=== PATIENT | female | born 1980 | race American Indian/Alaskan Native ===

== ENCOUNTER 2018-12-20 12:20 | Emergency (ER) | payer MEDICAID ==
--- NOTE | 2018-12-20 13:22 | Emergency Department Report ---
Blank Doc - Documentation Documentation: 38-year-old female that presents with left leg pain behind knee and heart palp ation. Denies any cp or sob. This initial assessment/diagnostic orders/clinical plan/treatment(s) is/are subject to change based on patient's health status, clinical progression and re- assessment by fellow clinical providers in the ED. Further treatment and workup at subsequent clinical providers discretion. Patient/guardians urged not to elope from the ED as their condition may be serious if not clinically assessed and managed. Initial orders include: 1- Patient sent to [facility] for further evaluation and treatment 2- doppler US r/o DVT 3- EKG
[2018-12-20 13:43] LABS: Basophils # (Auto) 0.1 K/mm3 (0.0-0.1); Eosinophils # (Auto) 0.1 K/mm3 (0.0-0.4); Eosinophils % (Auto) 1.1 % (0.0-4.3); Hematocrit 40.2 % (30.3-42.9); Hemoglobin 13.1 gm/dl (10.1-14.3); Lymphocytes # (Auto) 3.6 K/mm3 (1.2-5.4); Lymphocytes % (Auto) 45.2 % (13.4-35.0); Mean Corpuscular HGB Conc 33 % (30-34); Mean Corpuscular Volume 90 fl (79-97); Monocytes # (Auto) 0.5 K/mm3 (0.0-0.8); Monocytes % (Auto) 6.6 % (0.0-7.3); Platelet Count 249 K/mm3 (140-440); Red Blood Count 4.48 M/mm3 (3.65-5.03); Red Cell Distribution Width 12.8 % (13.2-15.2)
[2018-12-20 14:11] LABS: BUN/Creatinine Ratio 17; Blood Urea Nitrogen 12 mg/dL (7-17); Calcium 9.7 mg/dL (8.4-10.2); Hemolysis Index 15
--- NOTE | 2018-12-20 15:15 | Vascular Lab Report ---
DUPLEX DOPPLER LOWER EXTREMITY VEINS, LEFT INDICATION: Left lower extremity pain for 2 days. TECHNIQUE: Duplex doppler imaging was performed through the veins of the left lower extremity using venous compression and other maneuvers. COMPARISON: No relevant prior imaging study available. FINDINGS: Left Common femoral vein: Negative. Left Superficial femoral vein: Negative. Left Popliteal vein: Negative. Left Calf veins: Negative. Additional findings: None.. IMPRESSION: No sonographic evidence for DVT in the left lower extremity. Signer Name: Luis A Tidwell Jr, MD Signed: 12/20/2018 3:10 PM Workstation Name: [id number]
[2018-12-20 17:23] VITALS: BP 133/91
--- NOTE | 2018-12-20 17:44 | Emergency Department Report ---
ED Palpitations HPI - General Chief Complaint: Arrhythmia/Palpitations Stated Complaint: PALPITATION/LT LEG PAIN SWOLLEN Time Seen by Provider: 12/20/18 13:21 Source: patient Mode of arrival: Ambulatory Limitations: No Limitations - History of Present Illness Initial Comments: Patient is a 38-year-old female who presents emergency room with complaints of palpitations that began a few days ago. She states it lasts for a couple minutes and then goes away on its own. pt states that she has experienced this in the past and it just spontaneously resolves but she's never been evaluated for it. Patient denies any chest pain, shortness of breath, pleuritic chest pain, nausea, vomiting, diarrhea, fever, leg swelling, syncope. She states that she is also an experiencing cramping/spasming feeling in her left lower leg that began 3 days ago but has not seen any swelling. She denies any history of DVT or PE. States her mother did have a DVT in her 60s. Patient states she has had her thyroid function tested before during her routine physical exam at her doctor's office this year. Pt is planning to see her primary care doctor this week. She states she has a past medical history of asthma. She denies any allergies to medications. - Related Data Home Medications Medication Instructions Recorded Confirmed Last Taken ALBUTEROL Inhaler (OR & NICU) 2 puff IH QID PRN 03/30/15 12/10/15 Unknown [ProAir HFA Inhaler] Previous Rx's Medication Instructions Recorded Last Taken Type Ibuprofen [Motrin 800 MG tab] 800 mg PO Q8H PRN #20 tablet 01/25/14 Unknown Rx Naproxen [Naprosyn] 500 mg PO BID #10 tablet 03/30/15 Unknown Rx Cyclobenzaprine HCl [Flexeril 5 MG 5 mg PO QHS PRN #7 tablet 12/20/18 Unknown Rx TAB] Allergies Allergy/AdvReac Type Severity Reaction Status Date / Time No Known Allergies Allergy Unverified 01/25/14 08:47 ED Review of Systems ROS: Stated complaint: PALPITATION/LT LEG PAIN SWOLLEN Other details as noted in HPI Comment: All other systems reviewed and negative ED Past Medical Hx - Past Medical History Previous Medical History?: Yes Hx Asthma: Yes - Surgical History Past Surgical History?: Yes Additional Surgical History: tubal ligation - Social History Smoking Status: Current Every Day Smoker Substance Use Type: Marijuana - Medications Home Medications: Home Medications Medication Instructions Recorded Confirmed Last Taken Type Ibuprofen [Motrin 800 MG tab] 800 mg PO Q8H PRN #20 tablet 01/25/14 12/10/15 Unknown Rx ALBUTEROL Inhaler (OR & NICU) 2 puff IH QID PRN 03/30/15 12/10/15 Unknown History [ProAir HFA Inhaler] Naproxen [Naprosyn] 500 mg PO BID #10 tablet 03/30/15 12/10/15 Unknown Rx Cyclobenzaprine HCl [Flexeril 5 MG 5 mg PO QHS PRN #7 tablet 12/20/18 Unknown Rx TAB] ED Physical Exam - General Limitations: No Limitations General appearance: alert, in no apparent distress - Head Head exam: Present: atraumatic, normocephalic - Eye Eye exam: Present: normal appearance - ENT ENT exam: Present: mucous membranes moist - Respiratory Respiratory exam: Present: normal lung sounds bilaterally. Absent: respiratory distress, wheezes, rales, rhonchi, stridor, chest wall tenderness, accessory muscle use, decreased breath sounds, prolonged expiratory - Cardiovascular Cardiovascular Exam: Present: regular rate, normal rhythm, normal heart sounds. Absent: systolic murmur, diastolic murmur, rubs, gallop - Extremities Exam Extremities exam: Present: other (no BLE edema, negative homans sign, mild soreness to palpation of the left lower leg, 2+ distal pulses bilaterally, sensation intact) - Neurological Exam Neurological exam: Present: alert, oriented X3 - Psychiatric Psychiatric exam: Present: normal affect, normal mood - Skin Skin exam: Present: warm, dry, intact ED Course Vital Signs 12/20/18 12/20/18 13:21 17:08 Temperature 98 F 98.2 F Pulse Rate 70 71 Respiratory 18 16 Rate Blood Pressure 163/84 133/91 O2 Sat by Pulse 100 100 Oximetry ED Medical Decision Making - Lab Data Result diagrams: 12/20/18 13:25 12/20/18 13:25 Lab Results 12/20/18 12/20/18 Range/Units 13:25 13:25 WBC 7.9 (4.5-11.0) K/mm3 RBC 4.48 (3.65-5.03) M/mm3 Hgb 13.1 (10.1-14.3) gm/dl Hct 40.2 (30.3-42.9) % MCV 90 (79-97) fl MCH 29 (28-32) pg MCHC 33 (30-34) % RDW 12.8 L (13.2-15.2) % Plt Count 249 (140-440) K/mm3 Lymph % (Auto) 45.2 H (13.4-35.0) % Pender % (Auto) 6.6 (0.0-7.3) % Eos % (Auto) 1.1 (0.0-4.3) % Baso % (Auto) 1.0 (0.0-1.8) % Lymph # 3.6 (1.2-5.4) K/mm3 Pender # 0.5 (0.0-0.8) K/mm3 Eos # 0.1 (0.0-0.4) K/mm3 Baso # 0.1 (0.0-0.1) K/mm3 Seg Neutrophils % 46.1 (40.0-70.0) % Seg Neutrophils # 3.7 (1.8-7.7) K/mm3 Sodium 140 (137-145) mmol/L Potassium 4.3 (3.6-5.0) mmol/L Chloride 102.2 (98-107) mmol/L Carbon Dioxide 25 (22-30) mmol/L Anion Gap 17 mmol/L BUN 12 (7-17) mg/dL Creatinine 0.7 (0.7-1.2) mg/dL Estimated GFR > 60 ml/min BUN/Creatinine Ratio 17 % Glucose 97 (65-100) mg/dL Calcium 9.7 (8.4-10.2) mg/dL - EKG Data EKG shows normal: sinus rhythm, axis, intervals, QRS complexes Rate: normal - EKG Data 12/20/18 17:48 non specific T wave inversion only found in V1, v2 has been present previously on EKG on 12/10/2015 - Radiology Data Radiology results: report reviewed DUPLEX DOPPLER LOWER EXTREMITY VEINS, LEFT INDICATION: Left lower extremity pain for 2 days. TECHNIQUE: Duplex doppler imaging was performed through the veins of the left lower extremity using venous compression and other maneuvers. COMPARISON: No relevant prior imaging study available. FINDINGS: Left Common femoral vein: Negative. Left Superficial femoral vein: Negative. Left Popliteal vein: Negative. Left Calf veins: Negative. Additional findings: None.. IMPRESSION: No sonographic evidence for DVT in the left lower extremity. Signer Name: Luis A Torre Jr, MD Signed: 12/20/2018 3:10 PM Workstation Name: [id number] Transcribed By: RADHA Dictated By: LUIS A TORRE JR, MD Electronically Authenticated By: LUIS A TORRE JR, MD Signed Date/Time: 12/20/18 1510 - Medical Decision Making Patient is a 38-year-old female who presents emergency room with complaints of palpitations that began a few days ago. She states it lasts for a couple minutes and then goes away on its own. pt states that she has experienced this in the past and it just spontaneously resolves but she's never been evaluated for it. Patient denies any chest pain, shortness of breath, pleuritic chest pain, nausea, vomiting, diarrhea, fever, leg swelling, syncope. She states that she is also an experiencing cramping/spasming feeling in her left lower leg that began 3 days ago but has not seen any swelling. She denies any history of DVT or PE. States her mother did have a DVT in her 60s. Patient states she has had her thyroid function tested before during her routine physical exam at her doctor's office this year. Pt is planning to see her primary care doctor this week. She states she has a past medical history of asthma. She denies any allergies to medications. initial vitals with elevated bp, repeat improved. PERC criteria negative for PE. labs are WNL. EKG with non specific T wave changes which have been seen on prior EKG. doppler US of the LLE with no DVT. on exam: no BLE edema, negative homans sign, mild soreness to palpation of the left lower leg, 2+ distal pulses bilaterally, sensation intact. pt given muscle relaxer for muscle cramps of the left leg. discussed with pt to take medication as prescribed as needed for leg cramping. do not drive or operate heavy machinery while taking muscle relaxer. Please drink plenty of water. Avoid stimulants such as caffeine (including sodas,coffee) and energy drinks. Please follow up with a bench lathe operator and a primary care doctor in the next 2-3 days. Return to the emergency room immediately for any new or worsening symptoms. - Differential Diagnosis valvular disease, arrythmia, drug use, caffeine use, thyroid disease Critical care attestation.: If time is entered above; I have spent that time in minutes in the direct care of this critically ill patient, excluding procedure time. ED Disposition Clinical Impression: Palpitations, Pain in left lower leg Disposition: - TO HOME OR SELFCARE Is pt being admited?: No Does the pt Need Aspirin: No Condition: Stable Instructions: Palpitations (ED) Additional Instructions: take medication as prescribed as needed for leg cramping. do not drive or operate heavy machinery while taking muscle relaxer. Please drink plenty of water. Avoid stimulants such as caffeine (including sodas,coffee) and energy drinks. Please follow up with a bench lathe operator and a primary care doctor in the next 2-3 days. Return to the emergency room immediately for any new or worsening symptoms. Prescriptions: Cyclobenzaprine HCl [Flexeril 5 MG TAB] 5 mg PO QHS PRN #7 tablet PRN Reason: Muscle Spasm Referrals: PRIMARY CARE, [Primary Care Provider] - 2-3 Days CULLEN MEREDITH MD [Staff Physician] - 2-3 Days Forms: Work/School Release Form(ED) Time of Disposition: 17:44 Print Language: GUAMANIAN
== END 2018-12-20 17:59 | disposition home or self-care (01) ==
LOC: ED 12:20
DX: R00.2 Palpitations (principal); M79.662 Pain in left lower leg; J45.909 Unspecified asthma, uncomplicated; F17.200 Nicotine dependence, unspecified, uncomplicated; F12.10 Cannabis abuse, uncomplicated; Z98.51 Tubal ligation status; Z79.899 Other long term (current) drug therapy
CPT/HCPCS: 36415; 80048; 85025; 93005; 93010